=== PATIENT | female | born 1990 | race Hispanic/Latino ===

== ENCOUNTER 2018-03-28 19:11 | Emergency (ER) | payer SELFPAY ==
--- NOTE | 2018-03-28 20:09 | RAD REPORT ---
EXAM DESCRIPTION: RAD - Knee Right 3 View - 03/28/2018 7:53 pm CLINICAL HISTORY: PAIN COMPARISON: No comparisons FINDINGS: Evidence of previous ACL reconstruction noted. No acute fracture or dislocation evident. S mall suprapatellar joint effusion.
[2018-03-28] MEDS ORDERED: IBUPROFEN 400 MG TAB ONE (20:39)
--- NOTE | 2018-03-28 20:40 | EDPHYS ---
Physician Documentation [facility] Name: Gissell Dela Cruz Age: 28 yrs Sex: Female : 1990 Arrival Date: 03/28/2018 Time: 19:12 Bed 6 Private MD: ED Physician Jeremy Lemos HPI: 03/28 19:35 This 28 yrs old Female presents to ER via Other with complaints of Leg Injury. cp 19:35 The patient presents with an injury, pain, that is acute. The complaints affect the cp right knee. 19:35 Context: resulted from a mis-step, while walking down stairs. cp 03/29 19:35 Onset: The symptoms/episode began/occurred today. Associated signs and symptoms: cp Pertinent positives: swelling, Pertinent negatives calf tenderness, warmth. NYLON MENDER: 03/28 19:18 LMP 03/23/2018 aj1 Historical: - Allergies: 19:18 No Known Allergies; aj1 - Home Meds: 19:18 lisinopril-hydrochlorothiazide 20-25 mg oral tab 2 tabs once daily [Active]; aj1 - PMHx: 19:18 Hypertension; aj1 - Immunization history:: Flu vaccine is not up to date. - Social history:: Smoking status: Patient/guardian denies using tobacco. - Ebola Screening: : Patient denies travel to an Ebola-affected area in the 21 days before illness onset. ROS: 19:40 Constitutional: Negative for body aches, chills, fever, poor PO intake. cp 19:40 Respiratory: Negative for cough, shortness of breath, wheezing. cp 19:40 Abdomen/GI: Negative for abdominal pain, nausea, vomiting, and diarrhea, black/tarry stool, rectal bleeding. 19:40 Back: Negative for pain at rest, pain with movement, radiated pain. 19:40 : Negative for urinary symptoms. 19:40 MS/extremity: Positive for injury or acute deformity, decreased range of motion, pain, swelling, tenderness, of the right knee, Negative for paresthesias, warmth. 19:40 All other systems are negative. Exam: 19:45 Constitutional: The patient appears in no acute distress, alert, awake, non-toxic, well cp developed, well nourished, uncomfortable. 19:45 Head/Face: Normocephalic, atraumatic. cp 19:45 Chest/axilla: Inspection: normal. 19:45 Cardiovascular: Rate: normal, Rhythm: regular. 19:45 Respiratory: the patient does not display signs of respiratory distress, Respirations: normal, no use of accessory muscles, no retractions. 19:45 Abdomen/GI: Exam negative for discomfort, distension, guarding, Inspection: abdomen appears normal. 19:45 Back: pain, is absent, ROM is normal. 19:45 Musculoskeletal/extremity: Joints: All joints are normal except the right knee displays limited range of motion, painful range of motion, swelling, tenderness. 19:45 Skin: cellulitis, is not appreciated, injury, is not appreciated, no rash present. Vital Signs: 19:18 Pulse 79; Resp 18; Temp 98.4(TE); Pulse Ox 100% on R/A; Height 5 ft. 3 in. (160.02 cm) aj1 (R); Pain 7/10; 19:18 BP 152 / 117; aj1 20:45 BP 123 / 68; Pulse 70; Resp 18; Temp 98.4; Pulse Ox 99% on R/A; tl2 Procedures: 20:45 Splinting: Splint applied to right knee using knee immobilizer, applied by nurse. cp Examined by me, post splint application: neurovascular intact, Patient tolerated well. MDM: 19:24 Patient medically screened. cp 20:00 Differential diagnosis: dislocation, closed fracture, contusion, effusion, ligament cp injury. 20:38 Data reviewed: vital signs, nurses notes, radiologic studies, plain films. cp 20:38 Test interpretation: by ED physician or midlevel provider: plain radiologic studies. cp Counseling: I had a detailed discussion with the patient and/or guardian regarding: the historical points, exam findings, and any diagnostic results supporting the discharge/admit diagnosis, radiology results, the need for outpatient follow up, for definitive care, a orthopedic surgeon, to return to the emergency department if symptoms worsen or persist or if there are any questions or concerns that arise at home. Response to treatment: the patient's symptoms have mildly improved after treatment, and as a result, I will discharge patient. 03/28 20:13 Order name: Urine Dipstick--Ancillary (enter results) cc 03/28 20:14 Order name: Urine --Ancillary (enter results) cc 03/28 19:27 Order name: XRAY Knee RIGHT 3 view; Complete Time: 20:30 cp 03/28 20:30 Interpretation: Report reviewed. cp 03/28 19:27 Order name: Urine Test (obtain specimen); Complete Time: 20:04 cp 03/28 19:27 Order name: Urine Dipstick-Ancillary (obtain specimen); Complete Time: 20:04 cp 03/28 20:38 Order name: Knee Immobilizer; Complete Time: 20:50 cp Administered Medications: 20:34 Drug: Ibuprofen 800 mg Route: PO; ea 20:50 Follow up: Response: No adverse reaction; Pain is decreased tl2 Disposition: 21:00 Chart complete. cp 22:04 Co-signature as Attending Physician, Jeremy Lemos MD. pkl Disposition: 03/28/18 20:39 Discharged to Home. Impression: Pain in right knee. - Condition is Stable. - Discharge Instructions: Knee Immobilizer, Knee Pain. - Prescriptions for Anaprox DS 550 mg Oral Tablet - take 1 tablet by ORAL route every 12 hours As needed; 20 tablet. Tramadol 50 mg Oral Tablet - take 1 tablet by ORAL route every 8 hours as needed; 12 tablet. - Medication Reconciliation Form, Thank You Letter, Antibiotic Education, Prescription Opioid Use form. - Follow up: Олег Nixon MD; When: 2 - 3 days; Reason: Recheck today's complaints. - Problem is new. - Symptoms have improved. Signatures: Dispatcher [employer] EDGala Parker RN RN aj1 Jeremy Lemos MD MD pkl Emilio Arnett PA PA cp Sara Atkinson RN RN tl2 Bessie Grossman RN RN ea Corrections: (The following items were deleted from the chart) 20:53 20:39 03/28/2018 20:39 Discharged to Home. Impression: Pain in right knee. Condition is tl2 Stable. Forms are Medication Reconciliation Form, Thank You Letter, Antibiotic Education, Prescription Opioid Use. Follow up: Dr. Олег Nixon; When: 2 - 3 days; Reason: Recheck today's complaints. Problem is new. Symptoms have improved. cp
--- NOTE | 2018-03-28 20:40 | ER ---
Nurse's Notes [facility] Name: Gissell Dela Cruz Age: 28 yrs Sex: Female : 1990 Arrival Date: 03/28/2018 Time: 19:12 Bed 6 Private MD: Diagnosis: Pain in right knee Presentation: 03/28 19:14 Presenting complaint: Patient states: "I fell today and my knee popped out of place. I aj1 had a ACL reconstruction and meniscus repair one year ago." Reports pain and swelling to the right knee, unable to bear weight on right leg. Transition of care: patient was not received from another setting of care. Onset of symptoms was March 28, 2018 at 16:00. Risk Assessment: Do you want to hurt yourself or someone else? Patient reports no desire to harm self or others. Initial Sepsis Screen: Does the patient meet any 2 criteria? No. Patient's initial sepsis screen is negative. Does the patient have a suspected source of infection? No. Patient's initial sepsis screen is negative. Care prior to arrival: None. 19:14 Method Of Arrival: Other [facility] 19:14 Acuity: CAMILO 3 aj1 Triage Assessment: 19:18 General: Appears in no apparent distress. uncomfortable, Behavior is calm, cooperative, aj1 appropriate for age. Pain: Complains of pain in right knee Pain currently is 7 out of 10 on a pain scale. Neuro: Level of Consciousness is awake, alert, obeys commands. Cardiovascular: Patient's skin is warm and dry. Respiratory: Airway is patent Respiratory effort is even, unlabored, Respiratory pattern is regular, symmetrical. Musculoskeletal: Range of motion: limited in right knee. SLOT HOST: 19:18 LMP 03/23/2018 aj1 Historical: - Allergies: 19:18 No Known Allergies; aj1 - Home Meds: 19:18 lisinopril-hydrochlorothiazide 20-25 mg oral tab 2 tabs once daily [Active]; aj1 - PMHx: 19:18 Hypertension; aj1 - Immunization history:: Flu vaccine is not up to date. - Social history:: Smoking status: Patient/guardian denies using tobacco. - Ebola Screening: : Patient denies travel to an Ebola-affected area in the 21 days before illness onset. Screenin:45 Abuse screen: Denies threats or abuse. Nutritional screening: No deficits noted. tl2 Tuberculosis screening: No symptoms or risk factors identified. Fall Risk Ambulatory Aid- Crutches/Cane/Walker (15 pts). Gait- Impaired (20 pts.). Assessment: 19:45 General: Appears in no apparent distress. uncomfortable, Behavior is calm, cooperative, tl2 appropriate for age. Pain: Complains of pain in right knee Pain does not radiate. Neuro: Level of Consciousness is awake, alert, obeys commands, Oriented to person, place, time, situation. Cardiovascular: Denies chest pain. Respiratory: Airway is patent Respiratory effort is even, unlabored, Respiratory pattern is regular, symmetrical. Derm: Skin is pink, warm \\T\\ dry. Musculoskeletal: Circulation, motion, and sensation intact. Range of motion: limited in right knee Swelling present in right knee. Vital Signs: 19:18 Pulse 79; Resp 18; Temp 98.4(TE); Pulse Ox 100% on R/A; Height 5 ft. 3 in. (160.02 cm) aj1 (R); Pain 7/10; 19:18 BP 152 / 117; aj1 20:45 BP 123 / 68; Pulse 70; Resp 18; Temp 98.4; Pulse Ox 99% on R/A; tl2 ED Course: 19:12 Patient arrived in ED. ds1 19:17 Triage completed. aj1 19:21 Emilio Arnett PA is PHCP. cp 19:21 Jeremy Lemos MD is Attending Physician. cp 19:33 Elevated right leg. jb5 19:44 Sara Atkinson, RN is Primary Nurse. tl2 19:45 Patient has correct armband on for positive identification. Bed in low position. Call tl2 light in reach. Side rails up X 1. 19:46 Arm band placed on right wrist. tl2 19:53 XRAY Knee RIGHT 3 view In Process Unspecified. EDMS 20:39 Олег Nixon MD is Referral Physician. cp 20:51 No provider procedures requiring assistance completed. Patient did not have IV access tl2 during this emergency room visit. Administered Medications: 20:34 Drug: Ibuprofen 800 mg Route: PO; ea 20:50 Follow up: Response: No adverse reaction; Pain is decreased tl2 Outcome: 20:39 Discharge ordered by . cp 20:51 Discharged to home with crutches, with family. tl2 20:51 Condition: improved 20:51 Discharge instructions given to patient, Instructed on discharge instructions, follow up and referral plans. medication usage, Demonstrated understanding of instructions, follow-up care, medications, Prescriptions given X 2. 20:53 Patient left the ED. tl2 Signatures: Dispatcher [employer] EDMS Gala Momin, RN RN aj1 Shruthi Lantigua ds1 Emilio Arnett PA PA cp Knox, Taylor RN RN tl2 Stacia Trevino jb5 Bessie Grossman RN RN ea
[2018-03-28 21:14] LABS: Urine Blood TRACE (NEG); Urine Glucose NEGATIVE (NEG); Urine Protein NEGATIVE (NEG); Urine Specific Gravity >1.030 (1.005-1.030); Urine pH 5.5 (5.0-7.0)
[2018-03-28 21:14] LABS: Urine Specific Gravity >1.030 (1.005-1.030)
== END 2018-03-28 20:53 | disposition home or self-care (01) ==
LOC: ER 19:11
DX: M25.561 Pain in right knee (principal); I10 Essential (primary) hypertension
CPT/HCPCS: 81003; 81025; 99283

== ENCOUNTER 2019-07-29 08:27 | Emergency (ER) | payer SELFPAY ==
--- OUTSIDE RECORDS SUMMARY | 2019-07-29 08:30 | XMS REPORT | Continuity of Care Document ---
:1990 Author Organization [facility] Address [address] [place] [address] Phone Unavailable Care Team Providers Name Role Phone PHYSICIAN, NO Primary Care Physician Unavailable Insurance Providers Guarantor Gissell Eldridge Address [address] [place] [address] Email NONE Payer Self Pay Insurance Subscriber's Name Gissell Eldridge Relationship Self / Same As Patient Group Number NA Group Name NA Advance Directives Directive Response Recorded Date/Time Advance Directive on File No 08/06/18 8:20am Patient/Family Given Education Material R/T Y - 08/06/18...[place] 08/06/18 9: 59am Directives? Chief Complaint and Reason for Visit Chief Complaint Headache Reason for Visit Headache [id number] Hypertension Problems Active ProblemsNo active problem information available. Past Problems Medical Problem Onset Date Status Abnormal CT of brain Unknown Acute Headache Unknown Acute Hypertension Unknown Acute Medications Current Home Medications Medication Dose Units Route Directions Days Qty Instructions Start Date Lisinopril & 1 Tab ORAL Daily 30 Days 30 Tablet Hydrochlorothiazi 20/25MG * (Zestoretic 20/25 Mg *) 1 Tab Tab Social History Smoking Status Start Date Stop Date Never smoker Hospital Discharge Instructions No hospital discharge instruction information available. Plan of Care Discharge Date 08/06/18 11:18am Instructions/Education Provided General Headache Without Cause Hypertension Forms Provided Portal Welcome Letter Prescriptions See Medication Section Referrals NO PHYSICIAN Additional Instructions/Education CALL MD OR CLINIC TODAY FOR FOLLOW UP ON HIGH BLOOD PRESSURE AND ABNORMAL CAT SCAN LISINOPRIL/HCT20/12.5 EVERY AM FOR BLOOD PRESSURE MOTRIN FOR HEADACHE Functional Status No functional status information available. Allergies, Adverse Reactions, Alerts No known allergies. Immunizations No immunization information available. Vital Signs Acute Vital Signs Vital Response Date/Time Blood Pressure 131/80 mm Hg 08/06/2018 11:17am Pulse Pulse Rate (adult) 55 beats per minute (60 - 100) 08/06/2018 11:17am Respiratory Rate 15 breaths per minute (10 - 24) 08/06/2018 11:17am Temperature Source Oral 08/06/2018 11:17am Height 5 ft 3 in 08/06/2018 8:20am Weight 190 lb 08/06/2018 8:20am Body Mass Index 33.7 kg/m^2 08/06/2018 8:20am Results Laboratory Results Test Name Result Units Flags Reference Collection Result Comments Date/Time Date/Time White Blood Count 5.5 K/ul 4.0-11.5 08/06/2018 08/06/2018 10:04am 10:15am Red Blood Count 4.35 M/ul 3.80-5.20 08/06/2018 08/06/2018 10:04am 10:15am Hemoglobin 9.5 g/dl L 10.5-15.7 08/06/2018 08/06/2018 10:04am 10:15am Hematocrit 31.6 % L 34.0-50.0 08/06/2018 08/06/2018 10:04am 10:15am Mean Corpuscular 72.6 fl L 78-98 08/06/2018 08/06/2018 Volume 10:04am 10:15am Mean Corpuscular 21.8 pg L 26.2-33.4 08/06/2018 08/06/2018 Hemoglobin 10:04am 10:15am Mean Corpuscular 30.0 g/dl L 31.5-36.2 08/06/2018 08/06/2018 Hemoglobin Concent 10:04am 10:15am Red Cell 15.2 % 11.5-15.5 08/06/2018 08/06/2018 Distribution Width 10:04am 10:15am Platelet Count 345 K/ul H 137-338 08/06/2018 08/06/2018 10:04am 10:15am Mean Platelet 7.0 fl L 8.4-11.8 08/06/2018 08/06/2018 Volume 10:04am 10:15am Neutrophils (%) 67.9 % 44.4-80.1 08/06/2018 08/06/2018 (Auto) 10:04am 10:15am Lymphocytes (%) 21.3 % 10.0-50.0 08/06/2018 08/06/2018 (Auto) 10:04am 10:15am Monocytes (%) 6.9 % 3.6-12.04 08/06/2018 08/06/2018 (Auto) 10:04am 10:15am Eosinophils (%) 2.2 % 0.0-5.41 08/06/2018 08/06/2018 (Auto) 10:04am 10:15am Basophils (%) 1.7 % H 0.0-0.79 08/06/2018 08/06/2018 (Auto) 10:04am 10:15am Random Glucose 109 mg/dL H 74-106 08/06/2018 08/06/2018 10:04am 10:30am Blood Urea Nitrogen 9 mg/dL 6-20 08/06/2018 08/06/2018 10:04am 10:30am Serum Osmolality 281 280-300 08/06/2018 08/06/2018 10:04am 10:30am Creatinine 0.5 mg/dL 0.50-0.90 08/06/2018 08/06/2018 10:04am 10:30am Glomerular > 60.00 08/06/2018 08/06/2018 GFR RESULTS ARE REPORTED IN mL/min/1.73m2. Filtration Rate 10:04am 10:30am Calc Normal GFR: >60mL/min Moderately decreased GFR: 30-59 mL/min Severely decreased GFR: 15-29 mL/min Kidney Failure (or Dialysis): <15 mL/min The calculated eGFR is not valid for patients younger than 18 years or older than 75 years. BUN/Creatinine 18.0 12-20 08/06/2018 08/06/2018 Ratio 10:04am 10:30am Sodium Level 141 mmol/L 135-145 08/06/2018 08/06/2018 10:04am 10:30am Potassium Level 4.0 mmol/L 3.5-5.2 08/06/2018 08/06/2018 10:04am 10:30am Chloride Level 107 mmol/L 98-108 08/06/2018 08/06/2018 10:04am 10:30am Carbon Dioxide 24 mmol/L 21-32 08/06/2018 08/06/2018 Level 10:04am 10:30am Anion Gap 14.0 mEq/L 12-20 08/06/2018 08/06/2018 10:04am 10:30am Calcium Level 9.0 mg/dL 8.6-10.0 08/06/2018 08/06/2018 10:04am 10:30am Total Protein 6.9 g/dL 6.6-8.7 08/06/2018 08/06/2018 10:04am 10:30am Albumin 4.1 g/dL 3.5-5.2 08/06/2018 08/06/2018 10:04am 10:30am Globulin 2.8 gm/dL 08/06/2018 08/06/2018 10:04am 10:30am Albumin/Globulin 1.5 >1.0 08/06/2018 08/06/2018 Ratio 10:04am 10:30am Total Bilirubin 0.5 mg/dL 0.0-1.2 08/06/2018 08/06/2018 10:04am 10:30am Aspartate Amino 14 U/L L 15-32 08/06/2018 08/06/2018 Transf (AST/SGOT) 10:04am 10:30am Alanine 10 U/L 0-33 08/06/2018 08/06/2018 Aminotransferase 10:04am 10:30am (ALT/SGPT) Total Alkaline 70 U/L 35-105 08/06/2018 08/06/2018 Phosphatase 10:04am 10:30am Procedures Procedure Status Date Provider(s) Computed tomography of head without contrast Completed 08/06/18 ARCENIO SCOTT MD Encounters Encounter Location Arrival/Admit Date Discharge/Depart Date Attending Provider Departed [place] 08/06/18 8:10am 08/06/18 11:18am ARCENIO SCOTT [facility] Recent Diagnosis
--- OUTSIDE RECORDS SUMMARY | 2019-07-29 08:30 | XMS REPORT | Continuity of Care Document ---
:1990 Author Organization [facility] Address [address] [place] [address] Phone Unavailable Care Team Providers Name Role Phone PHYSICIAN, NO Primary Care Physician Unavailable Insurance Providers Guarantor Gissell Eldridge Address [address] [address] Email NONE Payer Self Pay Insurance Subscriber's Name Gissell Eldridge Relationship Self / Same As Patient Group Number NA Group Name NA Advance Directives Directive Response Recorded Date/Time Advance Directive on File No 11/20/18 8:15pm Patient/Family Given Education Material R/T Y - 11/20/18...MK 11/20/18 9: 12pm Directives? Chief Complaint and Reason for Visit Chief Complaint Extremity Pain/Injury Reason for Visit Carpal tunnel syndrome Cyst of hand Problems Active ProblemsNo active problem information available. Past Problems Medical Problem Onset Date Status Abnormal CT of brain Unknown Acute Carpal tunnel syndrome Unknown Acute Cyst of hand Unknown Acute Headache Unknown Acute Hypertension Unknown Acute Medications Current Home Medications Medication Dose Units Route Directions Days Qty Instructions Start Date Lisinopril & 1 Tab ORAL Daily 30 Days 30 Hydrochlorothiazi Tablet 20/25MG * (Zestoretic 20/25 Mg *) 1 Tab Tab Naproxen (Naprosyn 500 Mg ORAL Every 12 10 Days 20 500 Mg*) 500 Mg Tab Hours As Tablet 9 Needed as needed for Pain Social History Smoking Status Start Date Stop Date Current some day smoker Hospital Discharge Instructions No hospital discharge instruction information available. Plan of Care Discharge Date 11/20/18 9:12pm Instructions/Education Provided Carpal Tunnel Syndrome, [id number] Prescriptions See Medication Section Referrals NO PHYSICIAN Additional Instructions/Education naproxen 500mg po every 12 hours as needed for pain #20 buy carpel tunnel wrist splint to wear at night follow up with orthopedic next week for evaluation of cyst on hand return for new or worsening of symptoms Functional Status No functional status information available. Allergies, Adverse Reactions, Alerts No known allergies. Immunizations No immunization information available. Vital Signs Acute Vital Signs Vital Response Date/Time Blood Pressure 165/109 mm Hg 11/20/2018 9:18pm Pulse Pulse Rate (adult) 80 beats per minute (60 - 100) 11/20/2018 9:18pm Respiratory Rate 16 breaths per minute (10 - 24) 11/20/2018 9:18pm Temperature Source Oral 11/20/2018 9:18pm Height 5 ft 3 in 11/20/2018 8:15pm Weight 185 lb 11/20/2018 8:15pm Body Mass Index 32.8 kg/m^2 11/20/2018 8:15pm Results No relevant diagnostic test, laboratory data and/or discharge summary information available. Procedures No procedure information available. Encounters Encounter Location Arrival/Admit Date Discharge/Depart Date Attending Provider Departed [place] 11/20/18 8:11pm 11/20/18 9:12pm ARIELA[facility] Recent Diagnosis
--- NOTE | 2019-07-29 08:50 | EDPHYS ---
Physician Documentation [facility] Name: Gissell Dela Cruz Age: 29 yrs Sex: Female : 1990 Arrival Date: 07/29/2019 Time: 08:31 Bed 12 Private MD: ED Physician Hayden Luevano HPI: 07/29 08:47 This 29 yrs old Female presents to ER via Ambulatory with complaints of Hives. rn 08:47 Reports rash to torso and extremities, began yesterday, + extreme itching, has never rn happened before, no known allergies or new exposure. . Onset: The symptoms/episode began/occurred yesterday. Severity of symptoms: At their worst the symptoms were mild in the emergency department the symptoms are unchanged. The patient has not experienced similar symptoms in the past. The patient has not recently seen a physician. Historical: - Allergies: 08:43 No Known Allergies; aa5 - PMHx: 08:43 Hypertension; aa5 - PSHx: 08:43 R ACL repair; Tubal ligation; aa5 - Immunization history:: Adult Immunizations unknown. - Coronavirus screen:: The patient has NOT traveled to [place], [place], or [place] in the past 14 days. The patient has NOT had contact with known/suspected case of Coronavirus?. - Social history:: Smoking status: Patient denies any tobacco usage or history of. - Family history:: not pertinent. - Ebola Screening: : No symptoms or risks identified at this time. - Hospitalizations: : No recent hospitalization is reported. ROS: 08:47 Constitutional: Negative for fever, chills, and weight loss, Eyes: Negative for injury, rn pain, redness, and discharge, Neck: Negative for injury, pain, and swelling, Cardiovascular: Negative for chest pain, palpitations, and edema, Respiratory: Negative for shortness of breath, cough, wheezing, and pleuritic chest pain, Abdomen/GI: Negative for abdominal pain, nausea, vomiting, diarrhea, and constipation, MS/Extremity: Negative for injury and deformity, Skin: + rash to torso and extremities Neuro: Negative for headache, weakness, numbness, tingling, and seizure. Exam: 08:47 Constitutional: This is a well developed, well nourished patient who is awake, alert, rn and in no acute distress. Head/Face: Normocephalic, atraumatic. ENT: No oral lesions Respiratory: No increased work of breathing, no retractions or nasal flaring. Comfortable and speaking full sentences Skin: + back and extremities with mild urticaria, no bullae, no sloughing, no focal fluctuance. Vital Signs: 08:43 BP 144 / 99; Pulse 60; Resp 16 S; Temp 98.1(TE); Pulse Ox 100% on R/A; Weight 83.01 kg aa5 (R); Height 5 ft. 3 in. (160.02 cm) (R); Pain 0/10; 08:43 Body Mass Index 32.42 (83.01 kg, 160.02 cm) aa5 MDM: 08:41 Patient medically screened. rn 08:47 Differential Diagnosis urticaria. Data reviewed: vital signs, nurses notes, and as a rn result, I will discharge patient. Counseling: I had a detailed discussion with the patient and/or guardian regarding: the historical points, exam findings, and any diagnostic results supporting the discharge/admit diagnosis, the need for outpatient follow up, to return to the emergency department if symptoms worsen or persist or if there are any questions or concerns that arise at home. Special discussion: I discussed with the patient/guardian in detail that at this point there is no indication for admission to the hospital. It is understood, however, that if the symptoms persist or worsen the patient needs to return immediately for re-evaluation. Administered Medications: 09:04 Drug: predniSONE 60 mg Route: PO; aa5 09:10 Follow up: Response: No adverse reaction aa5 Disposition: 07/29/19 08:50 Discharged to Home. Impression: Urticaria, unspecified. - Condition is Stable. - Discharge Instructions: Hives. - Prescriptions for Hydroxyzine HCl 50 mg Oral Tablet - take 1 tablet by ORAL route every 8 hours As needed; 20 tablet. Prednisone 20 mg Oral Tablet - take 3 tablet by ORAL route once daily for 5 days; 15 tablet. - Medication Reconciliation Form, Thank You Letter, Antibiotic Education, Prescription Opioid Use, Work release form form. - Follow up: Private Physician; When: As needed; Reason: Recheck today's complaints, Re-evaluation by your physician. - Problem is new. - Symptoms have improved. Signatures: Luevano, Hayden, MD MD rn Uriarte, Isabel, RN RN aa5 Corrections: (The following items were deleted from the chart) 09:17 08:50 07/29/2019 08:50 Discharged to Home. Impression: Urticaria, unspecified. rn Condition is Stable. Forms are Medication Reconciliation Form, Thank You Letter, Antibiotic Education, Prescription Opioid Use. Follow up: Private Physician; When: As needed; Reason: Recheck today's complaints, Re-evaluation by your physician. Problem is new. Symptoms have improved. rn
--- NOTE | 2019-07-29 08:50 | ER ---
Nurse's Notes [facility] Name: Gissell Dela Cruz Age: 29 yrs Sex: Female : 1990 Arrival Date: 07/29/2019 Time: 08:31 Bed 12 Private MD: Diagnosis: Urticaria, unspecified Presentation: 07/29 08:38 Presenting complaint: Patient states: "I started with an itchy rash on my chest aa5 yesterday and this morning I took Benadryl and it went away for a little bit but now it's on my back". 08:38 Transition of care: patient was not received from another setting of care. Onset: The aa5 symptoms/episode began/occurred 1 day(s) ago. Anaphylaxis evaluation, the patient reports or I have noted the following symptoms which indicate a significant risk of anaphylaxis:. Onset of symptoms was July 2019. Risk Assessment: Do you want to hurt yourself or someone else? Patient reports no desire to harm self or others. Initial Sepsis Screen: Does the patient meet any 2 criteria? No. Patient's initial sepsis screen is negative. Does the patient have a suspected source of infection? No. Patient's initial sepsis screen is negative. Care prior to arrival: None. 08:38 Method Of Arrival: Ambulatory aa5 08:38 Acuity: CAMILO 5 aa5 Historical: - Allergies: 08:43 No Known Allergies; aa5 - PMHx: 08:43 Hypertension; aa5 - PSHx: 08:43 R ACL repair; Tubal ligation; aa5 - Immunization history:: Adult Immunizations unknown. - Coronavirus screen:: The patient has NOT traveled to [place], [place], or [place] in the past 14 days. The patient has NOT had contact with known/suspected case of Coronavirus?. - Social history:: Smoking status: Patient denies any tobacco usage or history of. - Family history:: not pertinent. - Ebola Screening: : No symptoms or risks identified at this time. - Hospitalizations: : No recent hospitalization is reported. Screenin:40 Abuse screen: Denies threats or abuse. Nutritional screening: No deficits noted. aa5 Tuberculosis screening: No symptoms or risk factors identified. Fall Risk None identified. Assessment: 08:40 General: Appears comfortable, Behavior is calm, cooperative. Pain: Denies pain. Neuro: aa5 Level of Consciousness is awake, alert, obeys commands, Oriented to person, place, time, situation. Cardiovascular: Heart tones S1 S2 present Rhythm is regular. Respiratory: Airway is patent Respiratory effort is even, unlabored, Respiratory pattern is regular, symmetrical, Breath sounds are clear bilaterally. GI: Abdomen is round non-distended, Bowel sounds present X 4 quads. Abd is soft and non tender X 4 quads. : No signs and/or symptoms were reported regarding the genitourinary system. EENT: No signs and/or symptoms were reported regarding the EENT system. Derm: Skin is pink, warm \\T\\ dry. Rash noted that is red, raised, on back. Musculoskeletal: Range of motion: intact in all extremities. 09:10 Reassessment: Patient is alert, oriented x 3, equal unlabored respirations, skin aa5 warm/dry/pink. Vital Signs: 08:43 BP 144 / 99; Pulse 60; Resp 16 S; Temp 98.1(TE); Pulse Ox 100% on R/A; Weight 83.01 kg aa5 (R); Height 5 ft. 3 in. (160.02 cm) (R); Pain 0/10; 08:43 Body Mass Index 32.42 (83.01 kg, 160.02 cm) aa5 ED Course: 08:31 Patient arrived in ED. rg4 08:40 Arm band placed on Patient placed in an exam room. aa5 08:40 Patient has correct armband on for positive identification. aa5 08:41 Hayden Luevano MD is Attending Physician. rn 08:43 Triage completed. aa5 08:44 Isabel Uriarte RN is Primary Nurse. aa5 09:10 No provider procedures requiring assistance completed. Patient did not have IV access aa5 during this emergency room visit. Administered Medications: 09:04 Drug: predniSONE 60 mg Route: PO; aa5 09:10 Follow up: Response: No adverse reaction aa5 Outcome: 08:50 Discharge ordered by . rn 09:10 Discharged to home ambulatory. aa5 09:10 Condition: stable 09:10 Discharge instructions given to patient, Instructed on discharge instructions, follow up and referral plans. medication usage, Demonstrated understanding of instructions, follow-up care, medications, Prescriptions given X 2. 09:12 Patient left the ED. aa5 Signatures: Hayden Luevano MD MD rn Calderon, TRAE Hall RN aa5 Xuan Chang rg4 Corrections: (The following items were deleted from the chart) 09:21 09:17 Patient left the ED. trae [email or web address]
[2019-07-29] MEDS ORDERED: predniSONE 20 MG TAB ONE (09:07)
[2019-07-29 11:43] VITALS: BP 144/99; TEMP 98.1; O2SAT 100
== END 2019-07-29 09:17 | disposition home or self-care (01) ==
LOC: ER 08:27
DX: L50.9 Urticaria, unspecified (principal)
CPT/HCPCS: 99283; J7512

== ENCOUNTER 2020-08-22 02:10 | Emergency (ER) | payer SELFPAY ==
[2020-08-22] MEDS ORDERED: ACETAMINOPHEN 500 MG TAB ONE (03:01)
--- NOTE | 2020-08-22 03:19 | ER ---
Nurse's Notes [facility] Name: Gissell Dela Cruz Age: 30 yrs Sex: Female : 1990 Arrival Date: 08/22/2020 Time: 02:12 Bed 7 Private MD: Diagnosis: Contusion-Right Foot Presentation: 08/22 02:18 Chief complaint: Patient states: C/O right foot pain, accidentally hit door 2 days ago. Coronavirus screen: Client denies travel out of the [place] in the last 14 days. At this time, the client does not indicate any symptoms associated with coronavirus-19. Ebola Screen: Patient negative for fever greater than or equal to 101.5 degrees Fahrenheit, and additional compatible Ebola Virus Disease symptoms Patient denies exposure to infectious person. Initial Sepsis Screen: Does the patient meet any 2 criteria? No. Patient's initial sepsis screen is negative. Does the patient have a suspected source of infection? No. Patient's initial sepsis screen is negative. Risk Assessment: Do you want to hurt yourself or someone else? Patient reports no desire to harm self or others. Onset of symptoms was August 22, 2020. 02:18 Method Of Arrival: Ambulatory 02:18 Acuity: CAMILO 4 Triage Assessment: 02:21 Injury Description: Right foot pain. [employer]: 02:22 LMP 07/2020 Historical: - Allergies: 02:21 No Known Allergies; - PMHx: 02:21 Hypertension; - PSHx: 02:21 Tubal ligation; - Immunization history:: Adult Immunizations up to date. - Social history:: Smoking status: Patient/guardian denies using. Screenin:21 Abuse screen: Denies threats or abuse. Denies injuries from another. Nutritional screening: No deficits noted. Tuberculosis screening: No symptoms or risk factors identified. Fall Risk None identified. Assessment: 02:21 General: Appears in no apparent distress. Behavior is calm, cooperative, appropriate for age. Pain: Complains of pain in right foot Pain currently is 6 out of 10 on a pain scale. Quality of pain is described as aching, Pain began 2-3 days ago. Neuro: Level of Consciousness is awake, alert, obeys commands, Oriented to person, place, time, situation, Appropriate for age. Cardiovascular: Capillary refill < 3 seconds. Respiratory: Airway is patent Respiratory effort is even, unlabored, Respiratory pattern is regular, symmetrical. GI: Abdomen is flat, non-distended. : No signs and/or symptoms were reported regarding the genitourinary system. EENT: No signs and/or symptoms were reported regarding the EENT system. Derm: Skin is intact, is healthy with good turgor, Skin is pink, warm \T\ dry. normal. Musculoskeletal: Circulation, motion, and sensation intact. 03:30 Reassessment: Patient appears in no apparent distress at this time. No changes from previously documented assessment. Patient and/or family updated on plan of care and expected duration. Pain level reassessed. Patient is alert/active/playful, equal unlabored respirations, skin warm/dry/pink. Vital Signs: 02:18 BP 156 / 107; Pulse 90; Resp 18; Temp 97.9; Pulse Ox 100% ; Weight 74.84 kg; Height 5 ft. 3 in. (160.02 cm); Pain 6/10; 03:30 BP 141 / 97; Pulse 69; Resp 18; Pulse Ox 100% on R/A; wh 02:18 Body Mass Index 29.23 (74.84 kg, 160.02 cm) ED Course: 02:12 Patient arrived in ED. cl3 02:13 Jose Luis Prakash, RN is Primary Nurse. 02:16 García Lawrence MD is Attending Physician. 7 02:20 Triage completed. 02:22 Patient has correct armband on for positive identification. Bed in low position. Call light in reach. Side rails up X 1. Pulse ox on. NIBP on. 02:23 Arm band placed on right wrist. 03:09 Foot Right 3 View XRAY In Process Unspecified. EDMS 03:13 No provider procedures requiring assistance completed. Patient did not have IV access mg2 during this emergency room visit. 03:18 Roge Vivar DPM is Referral Physician. 7 03:36 Crutch training done. Tejinder wrap to right foot Ortho shoe applied to right foot. mg2 Administered Medications: 02:41 Drug: Tylenol 1000 mg Route: PO; mg2 03:23 Follow up: Response: No adverse reaction mg2 Outcome: 03:18 Discharge ordered by . mh7 03:36 Discharged to home via wheelchair, with crutches. mg2 03:36 Condition: stable 03:36 Discharge instructions given to patient, family, Instructed on discharge instructions, follow up and referral plans. medication usage, Demonstrated understanding of instructions, follow-up care, medications, Prescriptions given X 1. 03:47 Patient left the ED. Signatures: Dispatcher [employer] EDJose Luis Gonzalez RN RN Janusz Jesus RN RN [facility] Edy Gonsales cl3 García Lawrence MD MD mh7
--- NOTE | 2020-08-22 03:19 | EDPHYS ---
Physician Documentation [facility] Name: Gissell Dela Cruz Age: 30 yrs Sex: Female : 1990 Arrival Date: 08/22/2020 Time: 02:12 Bed 7 Private MD: ALEJANDRA Physician García Lawrence HPI: 08/22 02:33 This 30 yrs old Female presents to ER via Ambulatory with complaints of Foot mh7 Injury, Foot Pain. 02:33 The patient presents with an injury, pain, that is acute, tenderness. The complaints mh7 affect the right foot. Context: The problem was sustained at home, resulted from stubbing toe on door. Mechanism of Injury: direct blow to lateral foot the patient can fully bear weight, the patient is able to ambulate, with mild difficulty. Onset: The symptoms/episode began/occurred 2 day(s) ago. Modifying factors: The symptoms are alleviated by nothing, the symptoms are aggravated by weight bearing. Associated signs and symptoms: Pertinent negatives: calf tenderness, fever, nausea, numbness, rash, swelling, tingling, vomiting, warmth, weakness. 02:35 Severity of symptoms: At their worst the symptoms were moderate, yesterday, in the [facility] emergency department the symptoms are unchanged. 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 - Social history:: Smoking status: Patient/guardian denies using. ROS: 02:35 Constitutional: Negative for fever, chills, and weight loss, Eyes: Negative for injury, mh7 pain, redness, and discharge, ENT: Negative for injury, pain, and discharge, Neck: Negative for injury, pain, and swelling, Cardiovascular: Negative for chest pain, palpitations, and edema, Respiratory: Negative for shortness of breath, cough, wheezing, and pleuritic chest pain, Abdomen/GI: Negative for abdominal pain, nausea, vomiting, diarrhea, and constipation, Back: Negative for injury and pain, : Negative for injury, bleeding, discharge, and swelling, Skin: Negative for injury, rash, and discoloration, Neuro: Negative for headache, weakness, numbness, tingling, and seizure, Psych: Negative for depression, anxiety, suicide ideation, homicidal ideation, and hallucinations, Allergy/Immunology: Negative for hives, rash, and allergies, Endocrine: Negative for neck swelling, polydipsia, polyuria, polyphagia, and marked weight changes, Hematologic/Lymphatic: Negative for swollen nodes, abnormal bleeding, and unusual bruising. Exam: 02:35 Constitutional: This is a well developed, well nourished patient who is awake, alert, mh7 and in no acute distress. Head/Face: Normocephalic, atraumatic. Neck: Trachea midline, no thyromegaly or masses palpated, and no cervical lymphadenopathy. Supple, full range of motion without nuchal rigidity, or vertebral point tenderness. No Meningismus. Chest/axilla: Normal chest wall appearance and motion. Nontender with no deformity. No lesions are appreciated. Cardiovascular: Regular rate and rhythm with a normal S1 and S2. No gallops, murmurs, or rubs. Normal PMI, no JVD. No pulse deficits. Respiratory: Lungs have equal breath sounds bilaterally, clear to auscultation and percussion. No rales, rhonchi or wheezes noted. No increased work of breathing, no retractions or nasal flaring. Abdomen/GI: Soft, non-tender, with normal bowel sounds. No distension or tympany. No guarding or rebound. No evidence of tenderness throughout. Back: No spinal tenderness. No costovertebral tenderness. Full range of motion. Skin: Warm, dry with normal turgor. Normal color with no rashes, no lesions, and no evidence of cellulitis. 02:35 Neuro: Awake and alert, GCS 15, oriented to person, place, time, and situation. Cranial nerves II-XII grossly intact. Motor strength 5/5 in all extremities. Sensory grossly intact. Cerebellar exam normal. Normal gait. Psych: Awake, alert, with orientation to person, place and time. Behavior, mood, and affect are within normal limits. 02:35 Musculoskeletal/extremity: Extremities: noted in the lateral aspect of right foot: pain, tenderness, ROM: intact in all extremities, Circulation is intact in all extremities. Pulses: are normal with no appreciated deficits, Perfusion: the patient is normally perfused throughout, Perfusion: the extremity is normally perfused throughout, Calf tenderness, is absent, Edema, is not appreciated, Sensation intact. Compartment Syndrome exam of affected extremity: is normal. no numbness, no tingling, no sensation deficit, no palor, no weak pulses, Joints: All joints appear normal with full range of motion. Tendon exam: specific tendon testing normal through active and passive range of motion Vital Signs: 02:18 BP 156 / 107; Pulse 90; Resp 18; Temp 97.9; Pulse Ox 100% ; Weight 74.84 kg; Height 5 wh ft. 3 in. (160.02 cm); Pain 6/10; 03:30 BP 141 / 97; Pulse 69; Resp 18; Pulse Ox 100% on R/A; wh 02:18 Body Mass Index 29.23 (74.84 kg, 160.02 cm) wh MDM: 03:16 Differential diagnosis: fracture, sprain, arthritis, Contusion. Data reviewed: vital [facility] signs, nurses notes, radiologic studies, plain films. Data interpreted: Pulse oximetry: on room air is 100 %. Interpretation: normal. 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 Response to treatment: the patient's symptoms have markedly improved after treatment. 03:18 Patient medically screened. [facility] 08/22 02:32 Order name: Foot Right 3 View XRAY [facility] 08/22 03:17 Order name: Tejinder Wrap; Complete Time: 03:36 [facility] 08/22 03:17 Order name: Orthopedic shoe; Complete Time: 03:35 [facility] 08/22 03:17 Order name: Crutches; Complete Time: 03:35 [facility] Administered Medications: 02:41 Drug: Tylenol 1000 mg Route: PO; mg2 03:23 Follow up: Response: No adverse reaction mg2 Disposition: 08/22/20 03:18 Discharged to Home. Impression: Contusion-Right Foot. - Condition is Stable. - Discharge Instructions: Foot Contusion, [id number]. - Prescriptions for Ibuprofen 800 mg Oral Tablet - take 1 tablet by ORAL route every 8 hours As needed take with food; 15 tablet. - Work release form, Medication Reconciliation Form, Thank You Letter, Antibiotic Education, Prescription Opioid Use form. - Follow up: Private Physician; When: 1 - 2 days; Reason: Worsening of condition, Recheck today's complaints, Continuance of care, Re-evaluation by your physician. Follow up: Roge Vivar DPM; When: 1 - 2 days; Reason: Worsening of condition, Recheck today's complaints. - Problem is new. - Symptoms have improved. Signatures: Dispatcher [employer] EDMS Jose Luis Prakash RN RN Janusz Jeuss RN RN [facility] García Lawrence MD MD mh7 Corrections: (The following items were deleted from the chart) 03:47 03:18 08/22/2020 03:18 Discharged to Home. Impression: Contusion-Right Foot. Condition wh is Stable. Forms are Medication Reconciliation Form, Thank You Letter, Antibiotic Education, Prescription Opioid Use. Follow up: Private Physician; When: 1 - 2 days; Reason: Worsening of condition, Recheck today's complaints, Continuance of care, Re-evaluation by your physician. Follow up: Roge Vivar; When: 1 - 2 days; Reason: Worsening of condition, Recheck today's complaints. Problem is new. Symptoms have improved. mh7
[2020-08-22 06:57] VITALS: TEMP 97.9; O2SAT 100
[2020-08-22 06:59] VITALS: BP 141/97
--- NOTE | 2020-08-22 08:19 | RAD REPORT ---
EXAM DESCRIPTION: RAD - Foot Right 3 View - 08/22/2020 3:09 am CLINICAL HISTORY: Injury, right foot pain, blunt force trauma 2 days earlier COMPARISON: No comparisonsNone. FINDINGS: No fracture, dislocation or periosteal reaction. No air or foreign body in the soft tissues. IMPRESSION: Negative right foot examination.
== END 2020-08-22 03:47 | disposition home or self-care (01) ==
LOC: ER 02:10
DX: S90.31XA Contusion of right foot, initial encounter (principal); W22.8XXA Striking against or struck by other objects, initial encounter; Y92.009 Unspecified place in unspecified non-institutional (private) residence as the place of occurrence of the external cause; I10 Essential (primary) hypertension
CPT/HCPCS: 99284

== ENCOUNTER 2021-02-23 08:51 | Emergency (ER) | payer SELFPAY ==
[2021-02-23 10:56] LABS: SARS-COV-2 RT PCR NEGATIVE (NEGATIVE)
--- NOTE | 2021-02-23 11:31 | ER ---
Nurse's Notes [facility] Name: Gissell Dela Cruz Age: 31 yrs Sex: Female : 1990 Arrival Date: 02/23/2021 Time: 08:54 Bed Waiting Private MD: Diagnosis: Headache Presentation: 02/23 09:11 Chief complaint: Patient states: BUCK x 2 days. Coronavirus screen: headache, Client jl7 presents with at least one sign or symptom that may indicate coronavirus-19. Standard/surgical mask placed on the client. Provider contacted for isolation considerations. Ebola Screen: No symptoms or risks identified at this time. Initial Sepsis Screen: Does the patient meet any 2 criteria? No. Patient's initial sepsis screen is negative. Does the patient have a suspected source of infection? No. Patient's initial sepsis screen is negative. Risk Assessment: Do you want to hurt yourself or someone else? Patient reports no desire to harm self or others. Onset of symptoms was February 21, 2021. 09:11 Method Of Arrival: Ambulatory [facility] 09:11 Acuity: CAMILO 4 jl7 Triage Assessment: 09:12 Headache History: The patient has had previous headaches and this one is similar to jl7 previous episodes. General: Appears in no apparent distress. uncomfortable, Behavior is calm, cooperative, appropriate for age. Pain: Complains of pain in BUCK Pain currently is 7 out of 10 on a pain scale. Pain began gradually, Also complains of no other associated symptoms. Neuro: Level of Consciousness is awake, alert, obeys commands, Oriented to person, place, time, situation. Cardiovascular: Patient's skin is warm and dry. Respiratory: Airway is patent Respiratory effort is even, unlabored, Respiratory pattern is regular, symmetrical. Derm: Skin is pink, warm \T\ dry. 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 - Social history:: Smoking status: Reported history of juuling and/or vaping. Screenin:15 Abuse screen: Denies threats or abuse. Denies injuries from another. Nutritional jl7 screening: No deficits noted. Tuberculosis screening: No symptoms or risk factors identified. Fall Risk None identified. Assessment: 09:15 Reassessment: RAZA Stubbs in triage assessing pt. jl7 Vital Signs: 09:11 BP 128 / 93; Pulse 93; Resp 17; Temp 98.9; Pulse Ox 100% ; jl7 11:46 BP 131 / 77; Pulse 79; Resp 15; Pulse Ox 100% ; jl7 [place] Coma Score: 11:31 Eye Response: spontaneous(4). Verbal Response: oriented(5). Motor Response: obeys kb commands(6). Total: 15. ED Course: 08:54 Patient arrived in ED. mr 09:12 Triage completed. jl7 09:12 Arm band placed on right wrist. Patient placed in waiting room, Patient notified of jl7 wait time. 09:14 [facility] Hazel [facility]C [facility] kb 09:14 Emilio Persaud MD is Attending Physician. kb 09:15 Patient has correct armband on for positive identification. jl7 09:15 COVID swab sent to lab. Flu and/or RSV swab sent to lab. jl7 09:15 No provider procedures requiring assistance completed. Patient did not have IV access jl7 during this emergency room visit. Administered Medications: No medications were administered Outcome: 11:30 Discharge ordered by . kb 11:44 Discharged to home ambulatory. jl7 11:44 Condition: stable 11:44 Discharge instructions given to patient, Instructed on discharge instructions, follow up and referral plans. Demonstrated understanding of instructions, follow-up care. 11:47 Patient left the ED. jl7 Signatures: Evelyne Hazel FNP-C FNP-Leonel Beverly Romero mr CruzalLaura, RN RN jl7
--- NOTE | 2021-02-23 11:31 | EDPHYS ---
Physician Documentation [facility] Name: Gissell Dela Cruz Age: 31 yrs Sex: Female : 1990 Arrival Date: 02/23/2021 Time: 08:54 Bed Waiting Private MD: Emilio Larsen HPI: 02/23 11:32 This 31 yrs old Female presents to ER via Ambulatory with complaints of kb Headache. 11:32 The patient complains of pain to the forehead. The patient describes the headache as kb throbbing. Associated signs and symptoms: Pertinent positives:. The patient has not recently seen a physician. 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 - Social history:: Smoking status: Reported history of juuling and/or vaping. ROS: 11:31 Constitutional: Negative for fever, chills, and weight loss. kb 11:31 Neuro: Positive for headache. 11:31 All other systems are negative. Exam: 11:31 Constitutional: This is a well developed, well nourished patient who is awake, alert, kb and in no acute distress. Head/Face: Normocephalic, atraumatic. ENT: Moist Mucous membranes Cardiovascular: Regular rate and rhythm with a normal S1 and S2. No gallops, murmurs, or rubs. No pulse deficits. Respiratory: Respirations even and unlabored. No increased work of breathing, no retractions or nasal flaring. Skin: Warm, dry with normal turgor. Normal color. MS/ Extremity: Pulses equal, no cyanosis. Neurovascular intact. Full, normal range of motion. Neuro: Awake and alert, GCS 15, oriented to person, place, time, and situation. Moves all extremities. Normal gait. Psych: Awake, alert, with orientation to person, place and time. Behavior, mood, and affect are within normal limits. Vital Signs: 09:11 BP 128 / 93; Pulse 93; Resp 17; Temp 98.9; Pulse Ox 100% ; jl7 11:46 BP 131 / 77; Pulse 79; Resp 15; Pulse Ox 100% ; jl7 Jeannette Coma Score: 11:31 Eye Response: spontaneous(4). Verbal Response: oriented(5). Motor Response: obeys kb commands(6). Total: 15. MDM: 09:14 Patient medically screened. kb 11:31 Data reviewed: vital signs, nurses notes. Data interpreted: Pulse oximetry: on room air kb is 100 %. Interpretation: normal. Counseling: I had a detailed discussion with the patient and/or guardian regarding: the historical points, exam findings, and any diagnostic results supporting the discharge/admit diagnosis, lab results, the need for outpatient follow up, a family practitioner, to return to the emergency department if symptoms worsen or persist or if there are any questions or concerns that arise at home. 02/23 09:15 Order name: Flu kb 02/23 10:56 Order name: COVID-19/FLU A+B; Complete Time: 10:59 EDMS Administered Medications: No medications were administered Disposition: 02/24 08:25 Co-signature as Attending Physician, Emilio Persaud MD I agree with the assessment and brad plan of care. Disposition Summary: 02/23/21 11:30 Discharge Ordered Location: Home kb Condition: Stable kb Diagnosis - Headache kb Followup: kb - With: Emergency Department - When: As needed - Reason: Worsening of condition Followup: kb - With: Private Physician - When: 2 - 3 days - Reason: Recheck today's complaints, Continuance of care, Re-evaluation by your physician Discharge Instructions: - Discharge Summary Sheet kb - General Headache Without Cause, [id number] kb Forms: - Medication Reconciliation Form kb - Thank You Letter kb - Antibiotic Education kb - Prescription Opioid Use kb Signatures: Dispatcher [employer] EDEvelyne Quigley, HOME APPLIANCE TECH-C HOME APPLIANCE TECH-Emilio Caldwell MD MD cha Leal, Jahala, RN RN jl7 Corrections: (The following items were deleted from the chart) 02/23 10:03 09:15 CORONAVIRUS+MR.LAB.BRZ ordered. EDMS EDMS 10:04 09:15 Influenza Screen (A ordered. EDMS EDMS
[2021-02-23 11:55] VITALS: TEMP 98.9; O2SAT 100
[2021-02-23 11:57] VITALS: BP 131/77
== END 2021-02-23 11:47 | disposition home or self-care (01) ==
LOC: ER 08:51
DX: R51.9 Headache, unspecified (principal); I10 Essential (primary) hypertension; Z20.822 Contact with and (suspected) exposure to COVID-19
CPT/HCPCS: 0240U; 99283

== ENCOUNTER 2021-02-24 19:55 | Emergency (ER) | payer SELFPAY | END 2021-02-24 22:27 | disposition left against medical advice (07) | LOC: ER 19:55 | DX: Z02.9 Encounter for administrative examinations, unspecified (principal) ==

== ENCOUNTER 2021-02-26 08:28 | Emergency (ER) | payer SELFPAY ==
[2021-02-26] MEDS ORDERED: ACETAMINOPHEN 500 MG TAB ONE (10:51)
--- NOTE | 2021-02-26 15:39 | EDPHYS ---
Physician Documentation [facility] Name: Gissell Dela Cruz Age: 31 yrs Sex: Female : 1990 Arrival Date: 02/26/2021 Time: 08:35 Bed 9 Private MD: ED Physician Leland Salcedo HPI: 02/26 12:54 SEE DOWN TIME PAPER CHART. sp3 MDM: 12:54 Patient medically screened. sp3 Administered Medications: No medications were administered Disposition Summary: 02/26/21 12:55 Discharge Ordered Location: Home sp3 Condition: Stable sp3 Diagnosis - SARS-associated coronavirus as the cause of diseases classified elsewhere sp3 Forms: - Medication Reconciliation Form sp3 - Thank You Letter sp3 - Antibiotic Education sp3 - Prescription Opioid Use sp3 Signatures: Leland Salcedo MD MD sp3
== END 2021-02-26 12:56 | disposition home or self-care (01) ==
LOC: ER 08:28
DX: U07.1 COVID-19 (principal); I10 Essential (primary) hypertension; F17.290 Nicotine dependence, other tobacco product, uncomplicated
CPT/HCPCS: 87070; 87081; 87804; U0003

== ENCOUNTER 2021-03-03 05:05 | Emergency (ER) | payer SELFPAY ==
[2021-03-03] MEDS ORDERED: NA CHLORIDE 0.9% 500 ML ONE (06:07)
[2021-03-03 06:15] LABS: Absolute Lymphocytes (CBC) 0.9 K/uL (0.7-4.9); Basophils % 0.4 % (0-1.3); Hematocrit 22.6 % (36.0-45.0); Lymphocytes % 22.1 % (15.3-44.8); RBC Red Blood Cell Count 4.44 M/uL (3.86-4.86)
[2021-03-03 06:17] LABS: Protime INR 1.19
[2021-03-03] MEDS ORDERED: ASPIRIN EC 81 MG TAB PO ONE (06:31)
[2021-03-03] MEDS ORDERED: METHYLPREDNISOLONE 125 MG INJ ONE (06:31)
[2021-03-03] MEDS ORDERED: AZITHROMYCIN 250 MG TAB ONE (06:32)
[2021-03-03] MEDS ORDERED: predniSONE 20 MG TAB ONE (06:32)
[2021-03-03] MEDS ORDERED: NA CHLORIDE 0.9% 1,000 ML ONE ×2 (06:34→12:20)
[2021-03-03] MEDS ORDERED: FAMOTIDINE 20 MG/2 ML VIAL IV ONE (06:34)
[2021-03-03 06:48] LABS: Urine Blood Negative (Negative); Urine Glucose Negative (Negative); Urine Protein Negative (Negative); Urine pH 6.5 (5.0-7.0)
[2021-03-03 07:04] LABS: ALT/SGPT 53 U/L (12-78); AST/SGOT 82 U/L (15-37); Albumin 3.4 g/dL (3.4-5.0); Alkaline Phosphatase 74 U/L (45-117); BUN Blood Urea Nitrogen 6 mg/dL (7-18); Bicarbonate 24 mmol/L (21-32); Bilirubin Direct 0.1 mg/dL (0-0.2); Bilirubin Total 0.3 mg/dL (0.2-1.0); Glucose Level 100 mg/dL (74-106); Magnesium 1.7 mg/dL (1.8-2.4); NT PRO-BNP 68 pg/mL (<125); Protein, Total 7.2 g/dL (6.4-8.2); Sodium Level 139 mmol/L (136-145); Troponin (Emerg Dept Use Only) < 0.02 ng/mL (0.0-0.045)
--- NOTE | 2021-03-03 07:09 | RAD REPORT ---
EXAM DESCRIPTION: RAD - Chest Single View - 03/03/2021 6:22 am CLINICAL HISTORY: CHEST PAIN COMPARISON: Chest For Pe Angio dated 03/03/2021 FINDINGS: Lines: None. Lungs: Patchy multifocal airspace disease bilaterally which is mild to moderate. Pleural: No significant pleural effusions or pneumothorax. Cardiac: The heart size is within normal limits. Bones: No acute fractures. Other: IMPRESSION: Mild to moderate patchy bilateral airspace disease concerning for multifocal pneumonia, including Covid-19 .
[2021-03-03] MEDS ORDERED: ONDANSETRON 4 MG/2 ML VIAL ONE (07:52)
[2021-03-03] MEDS ORDERED: POTASSIUM 25 MEQ EFFERV TAB ONE (08:14)
[2021-03-03] MEDS ORDERED: MAGNESIUM SULFATE 1 gm IVPB 1 GM/100 ML BAG IV ONE (08:16)
[2021-03-03] MEDS ORDERED: ALBUTEROL INHALER 60 PUFF/8 GM IH ONE ×2 (08:17→08:20)
[2021-03-03 10:26] LABS: Platelet Estimate DECR
[2021-03-03 10:27] LABS: Anisocytosis 1+; Blood Morphology Comment NOTED (NOT SEEN); Hypochromasia 3+; Platelets, Giant PRESENT; Poikilocytosis 1+
--- NOTE | 2021-03-03 14:15 | RAD REPORT ---
EXAM DESCRIPTION: CT - Chest For Pe Angio - 03/03/2021 6:58 am CLINICAL HISTORY: The patient is 31 years old and is Female; CHEST PAIN TECHNIQUE: Axial computed tomographic angiography images of the chest with intravenous contrast. S agittal and coronal reformatted images were created and reviewed. This CT exam was performed using one or more of the following dose reduction techniques: automated exposure control, adjustment of t he mA and/or kV according to patient size, and/or use of iterative reconstruction technique. MIP re constructed images were created and reviewed. COMPARISON: No relevant prior studies available. FINDINGS: Pulmonary arteries: The main pulmonary artery measures 3.4 cm in diameter which can be s een with pulmonary hypertension. No pulmonary embolism. Aorta: No acute findings. No thoracic aortic aneurysm. Lungs: Multifocal consolidation with scattered groundglass changes in the lungs bilaterally. Pleural space: Unremarkable. No significant effusion. No pneumothorax. Heart: Unremarkable. No cardiomegaly. No significant pericardial effusion. No evidence of R V dysfunction. Bones/joints: No acute fracture. No dislocation. Soft tissues: Unremarkable. Lymph nodes: Unremarkable. No enlarged lymph nodes. IMPRESSION: 1. No evidence of pulmonary embolism. 2. Multifocal consolidation with scattered groundglass changes in the lungs bilaterally. Findings are suggestive of multifocal pneumonia. 3. The main pulmonary artery measures 3.4 cm in diameter which can be seen with pulmonary hypertens ion. Electronically signed by: Roge Friedman MD 03/03/2021 6:36 AM CDT Due to temporary technical issues with the PACS/Fluency reporting system, reports are being signed by the in house radiologists without review as a courtesy to insure prompt reporting. The interpreting radiologist is fully responsible for the content of the report.
[2021-03-03 15:33] LABS: Ferritin 38.3 ng/mL (8-388); Folic Acid, (Folate) 18.1 ng/mL (3.1-17.5)
[2021-03-03] MEDS ORDERED: NA CHLORIDE 0.9% 250 ML ONE (16:45)
--- NOTE | 2021-03-03 19:49 | ER ---
Nurse's Notes [facility] Name: Gissell Dela Cruz Age: 31 yrs Sex: Female : 1990 Arrival Date: 03/03/2021 Time: 05:08 Bed 15 Private MD: Diagnosis: Iron deficiency anemia secondary to blood loss (chronic);Iron deficiency anemia, unspecified;Coronavirus infection, unspecified;Pneumonia due to SARS-associated coronavirus;Weakness;Chest pain on breathing;Hypokalemia;Hypomagnesemia Presentation: 03/03 05:22 Chief complaint: Patient states: covid positive on 02/23/21, developed chest pressure, em difficulty breathing, fever, took ibuprofen and Tylenol 1 hr EVP STRATEGY. Coronavirus screen: Vaccine status: Patient reports being unvaccinated. Ebola Screen: Patient negative for fever greater than or equal to 101.5 degrees Fahrenheit, and additional compatible Ebola Virus Disease symptoms Patient denies exposure to infectious person. Patient denies travel to an Ebola-affected area in the 21 days before illness onset. No symptoms or risks identified at this time. Initial Sepsis Screen: Does the patient meet any 2 criteria? HR > 90 bpm. Does the patient have a suspected source of infection? Yes: Productive cough/pneumonia. Risk Assessment: Do you want to hurt yourself or someone else? Patient reports no desire to harm self or others. Onset of symptoms was March 03, 2021. 05:22 Method Of Arrival: Ambulatory em 05:22 Acuity: CAMILO 2 em Triage Assessment: 18:18 General: Appears in no apparent distress. comfortable, well groomed, well nourished, aj2 Behavior is calm, cooperative, appropriate for age. Pain: Denies pain. 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 - Social history:: Smoking status: Reported history of juuling and/or vaping. - Family history:: not pertinent. Screenin:57 Abuse screen: Denies threats or abuse. Denies injuries from another. Nutritional aj2 screening: No deficits noted. Tuberculosis screening: No symptoms or risk factors identified. Fall Risk None identified. Assessment: 09:57 Reassessment: Patient appears in no apparent distress at this time. Patient is alert, aj2 oriented x 3, equal unlabored respirations, skin warm/dry/pink. Patient denies pain at this time. Patient states feeling better. Pain: Denies pain. Pain: Denies pain. Cardiovascular: No deficits noted. 12:22 Reassessment: Patient appears in no apparent distress at this time. Patient and/or aj2 family updated on plan of care and expected duration. Pain level reassessed. Patient is alert, oriented x 3, equal unlabored respirations, skin warm/dry/pink. Patient denies pain at this time. Patient states symptoms have improved. Pain: Denies pain. 14:40 Reassessment: Patient appears in no apparent distress at this time. Patient is alert, aj2 oriented x 3, equal unlabored respirations, skin warm/dry/pink. Patient denies pain at this time. 17:14 Reassessment: Patient appears in no apparent distress at this time. Patient is alert, aj2 oriented x 3, equal unlabored respirations, skin warm/dry/pink. Patient denies pain at this time. Report given to Soha (charge nurse). One unit of red blood cells infusing per protocol with no adverse reactions.. Nursing staff will continue to monitor.. 21:00 Pain: Pain began. lh3 Vital Signs: 05:22 BP 140 / 97; Pulse 122; Resp 26; Temp 98.6; Pulse Ox 100% on R/A; Weight 77.11 kg; em Height 5 ft. 3 in. (160.02 cm); 09:08 BP 130 / 87; Pulse 87; Resp 22; Temp 97.7; Pulse Ox 97% ; aj2 10:48 BP 123 / 80; Pulse 82; Resp 22; Temp 97.2; Pulse Ox 98% ; aj2 12:21 BP 119 / 75; Pulse 72; Resp 20; Pulse Ox 100% on 2 lpm NC; aj2 12:22 Temp 98.4; aj2 14:38 BP 121 / 79; Pulse 79; Resp 20; Temp 98.1; Pulse Ox 100% on 2 lpm NC; aj2 17:14 BP 119 / 75; Pulse 64; Resp 18; Temp 98; Pulse Ox 100% ; aj2 18:18 BP 138 / 99; Pulse 18; Resp 18; Temp 98.2; Pulse Ox 100% on 2 lpm NC; aj2 05:22 Body Mass Index 30.11 (77.11 kg, 160.02 cm) em Vitals: 12:22 Cardiac Rhythm Assessment Sinus rhythm. aj2 14:40 Cardiac Rhythm Assessment Sinus rhythm. aj2 17:14 Cardiac Rhythm Assessment Sinus rhythm. aj2 ED Course: 05:08 Patient arrived in ED. bp1 05:25 Triage completed. em 05:25 Arm band placed on. em 05:41 Shima Talamantes is Primary Nurse. kc4 05:44 Emilio Persaud MD is Attending Physician. brad 06:17 Chest For PE Angio CT In Process Unspecified. EDMS 06:22 XRAY Chest (1 view) In Process Unspecified. EDMS 07:35 Emilio Arnett PA is PHCP. cp 07:57 Avery Arnold MD is Attending Physician. cp 09:57 No apparent distress. Appears to be sleeping. aj2 09:57 Patient has correct armband on for positive identification. monitoring and evaluation advisor on. aj2 09:57 No provider procedures requiring assistance completed. IV is patent, is intact, Flushed aj2 left Converted IV to saline lock on. Patient maintains SpO2 saturation greater than 95% on room air. 11:00 Attending Physician role handed off by Avery Arnold MD cp 11:00 Emilio Persaud MD is Attending Physician. cp 12:22 No apparent distress. Resting quietly. aj2 12:22 IV is patent, is intact, Flushed. aj2 14:40 No apparent distress. Resting quietly. aj2 14:40 IV is patent, is intact, Blood infusing. aj2 17:14 No apparent distress. Resting quietly. aj2 18:24 PHCP role handed off by Emilio Arnett PA [facility] 18:24 Galindo Rodrigues PA is PHCP. [facility] 19:48 Rey Bronson MD is Referral Physician. [facility] 19:48 Fransisco Ponce MD is Referral Physician. [facility] Administered Medications: 06:20 Drug: predniSONE 40 mg Route: PO; kc4 06:39 Follow up: Response: No adverse reaction kc4 06:20 Drug: SOLU-Medrol (methylPrednisoLONE) 125 mg Route: IVP; Site: right antecubital; kc4 06:38 Follow up: Response: No adverse reaction kc4 06:21 Drug: Pepcid (famotidine) 40 mg Route: IVP; Site: right antecubital; kc4 06:21 Drug: Zithromax (azithromycin) 500 mg Route: PO; kc4 06:40 Follow up: Response: No adverse reaction kc4 06:21 Drug: Aspirin Chewable Tablet 324 mg Route: PO; kc4 06:39 Follow up: Response: No adverse reaction kc4 06:40 Follow up: Response: No adverse reaction kc4 06:42 Drug: NS 0.9% 500 ml Route: IV; Rate: bolus; Site: right antecubital; kc4 07:44 Drug: Zofran (Ondansetron) 4 mg Route: IVP; Site: right antecubital; aj2 07:45 Not Given (Duplicate Order): Potassium Effervescent Tablet 25 mEq PO once; dissolve in aj2 4 ounces of water or juice 08:13 Drug: Albuterol HFA Inhaler 4 puffs Route: Inhalation; aj2 08:13 Drug: Magnesium Sulfate 1 grams Route: IVPB; Infused Over: 1 hrs; Site: right aj2 antecubital; 08:13 Drug: Potassium Effervescent Tablet 25 mEq Route: PO; aj2 Medication: 17:14 Blood products: PRBCs X 2 units given. aj2 Outcome: 19:48 Discharge ordered by MD. hernandez 20:26 Discharged to home ambulatory. 3 20:26 Condition: good 20:26 Discharge instructions given to patient, Instructed on discharge instructions, follow up and referral plans. iron deficiency and potassium deficiency Demonstrated understanding of instructions. 20:46 Patient left the ED. 3 Signatures: Dispatcher [employer] Emilio Barker MD MD cha Mickail, Joel, PA PA jmm Munoz, Edgar, RN RN em Page, Corey, PA PA cp Paniauga, Brittany bp1 Hardee, Latisha, RN RN 3 Seferino Pleitez aj2 Shima Talamantes kc4 Corrections: (The following items were deleted from the chart) 06:42 06:21 NS 0.9% 1000 ml IV at 125 ml/hr in right antecubital kc4 kc4
--- NOTE | 2021-03-03 19:49 | EDPHYS ---
Physician Documentation [facility] Name: Gissell Dela Cruz Age: 31 yrs Sex: Female : 1990 Arrival Date: 03/03/2021 Time: 05:08 Bed 15 Private MD: ED Physician Emilio Persaud HPI: 03/03 06:59 This 31 yrs old Female presents to ER via Ambulatory with complaints of Chest brad Tightness, Fever. 06:59 The patient or guardian reports chest pain that is located primarily in the substernal brad area, anterior chest wall, bilaterally. The pain does not radiate. Associated signs and symptoms: The patient has no apparent associated signs or symptoms. The chest pain is described as a heaviness. Duration: The patient or guardian reports a single episode, that is still ongoing, but improving. Modifying factors: The symptoms are alleviated by nothing. the symptoms are aggravated by breathing, cough. Severity of pain: At its worst the pain was mild in the emergency department the pain has improved. The patient has not experienced similar symptoms in the past. 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 - Social history:: Smoking status: Reported history of juuling and/or vaping. - Family history:: not pertinent. ROS: 06:59 Constitutional: Negative for fever, chills, and weight loss, Eyes: Negative for injury, brad pain, redness, and discharge, ENT: Negative for injury, pain, and discharge, Neck: Negative for injury, pain, and swelling, Abdomen/GI: Negative for abdominal pain, nausea, vomiting, diarrhea, and constipation, Back: Negative for injury and pain, : Negative for injury, bleeding, discharge, and swelling, MS/Extremity: Negative for injury and deformity, Skin: Negative for injury, rash, and discoloration, Neuro: Negative for headache, weakness, numbness, tingling, and seizure, Psych: Negative for depression, anxiety, suicide ideation, homicidal ideation, and hallucinations, Allergy/Immunology: Negative for hives, rash, and allergies, Endocrine: Negative for neck swelling, polydipsia, polyuria, polyphagia, and marked weight changes, Hematologic/Lymphatic: Negative for swollen nodes, abnormal bleeding, and unusual bruising. 06:59 Cardiovascular: Positive for chest pain, palpitations. 06:59 Respiratory: Positive for cough, "sounds productive", shortness of breath, at rest. 06:59 MS/extremity: Negative for acute changes. Exam: 06:59 Constitutional: This is a well developed, well nourished patient who is awake, alert, brad and in no acute distress. Head/Face: Normocephalic, atraumatic. Eyes: Pupils equal round and reactive to light, extra-ocular motions intact. Lids and lashes normal. Conjunctiva and sclera are non-icteric and not injected. Cornea within normal limits. Periorbital areas with no swelling, redness, or edema. ENT: Nares patent. No nasal discharge, no septal abnormalities noted. Tympanic membranes are normal and external auditory canals are clear. Oropharynx with no redness, swelling, or masses, exudates, or evidence of obstruction, uvula midline. Mucous membranes moist. Neck: Trachea midline, no thyromegaly or masses palpated, and no cervical lymphadenopathy. Supple, full range of motion without nuchal rigidity, or vertebral point tenderness. No Meningismus. Chest/axilla: Normal chest wall appearance and motion. Nontender with no deformity. No lesions are appreciated. Abdomen/GI: Soft, non-tender, with normal bowel sounds. No distension or tympany. No guarding or rebound. No evidence of tenderness throughout. Back: No spinal tenderness. No costovertebral tenderness. Full range of motion. MS/ Extremity: Pulses equal, no cyanosis. Neurovascular intact. Full, normal range of motion. Neuro: Awake and alert, GCS 15, oriented to person, place, time, and situation. Cranial nerves II-XII grossly intact. Motor strength 5/5 in all extremities. Sensory grossly intact. Cerebellar exam normal. Normal gait. Psych: Awake, alert, with orientation to person, place and time. Behavior, mood, and affect are within normal limits. 06:59 Cardiovascular: Rate: tachycardic, Rhythm: regular, Pulses: Pulses are 4+ in bilateral radial, brachial, femoral, popliteal, posterior tibial and and dorsalis pedis arteries.. Heart sounds: normal, murmur, not appreciated, rub, not appreciated, gallop, not appreciated. 06:59 ECG was reviewed by the Attending Physician. 06:59 Respiratory: Respirations: labored breathing, is not present, Breath sounds: bronchial sounds, that are mild, are scattered, decreased breath sounds, that are mild, are located in both bases, rhonchi, that are mild, are located in both bases, stridor, is not appreciated, wheezing: expiratory is scattered, Respiratory rate: 26 Vital Signs: 05:22 BP 140 / 97; Pulse 122; Resp 26; Temp 98.6; Pulse Ox 100% on R/A; Weight 77.11 kg; em Height 5 ft. 3 in. (160.02 cm); 09:08 BP 130 / 87; Pulse 87; Resp 22; Temp 97.7; Pulse Ox 97% ; aj2 10:48 BP 123 / 80; Pulse 82; Resp 22; Temp 97.2; Pulse Ox 98% ; aj2 12:21 BP 119 / 75; Pulse 72; Resp 20; Pulse Ox 100% on 2 lpm NC; aj2 12:22 Temp 98.4; aj2 14:38 BP 121 / 79; Pulse 79; Resp 20; Temp 98.1; Pulse Ox 100% on 2 lpm NC; aj2 17:14 BP 119 / 75; Pulse 64; Resp 18; Temp 98; Pulse Ox 100% ; aj2 18:18 BP 138 / 99; Pulse 18; Resp 18; Temp 98.2; Pulse Ox 100% on 2 lpm NC; aj2 05:22 Body Mass Index 30.11 (77.11 kg, 160.02 cm) em MDM: 05:44 Patient medically screened. [facility] 18:00 Data reviewed: vital signs, nurses notes. 18:00 Transition of care: After a detail discussion of the patient's case, care is cp transferred to [facility]. ED course: Patient continues to receive second unit of blood. 03/03 05:32 Order name: Basic Metabolic Panel; Complete Time: 07:33 em 03/03 11:30 Interpretation: Normal except: K 3.0; CL 109; BUN 6; CA 8.3. 03/03 05:32 Order name: CBC with Diff; Complete Time: 18:24 em 03/03 11:30 Interpretation: Normal except: WBC 3.90; HGB 6.3; HCT 22.6; MCV 50.9; MCH 14.1; MCHC cp 27.7; PLT 132; RDW 21.2; LISS% 73.8; MN% 2.9. 03/03 05:32 Order name: LFT's; Complete Time: 07:33 03/03 05:32 Order name: Magnesium; Complete Time: 07:33 03/03 05:32 Order name: NT PRO-BNP; Complete Time: 07:33 03/03 05:32 Order name: PT-INR; Complete Time: 06:37 03/03 05:32 Order name: Troponin (emerg Dept Use Only); Complete Time: 07:33 03/03 06:27 Order name: CREATININE WHOLE BLOOD; Complete Time: 06:37 [facility] 03/03 06:36 Order name: Type And Screen [facility] 03/03 06:39 Order name: Ferritin; Complete Time: 18:24 [facility] 03/03 06:39 Order name: TIBC; Complete Time: 18:24 [facility] 03/03 06:39 Order name: Folic Acid,Serum (folate); Complete Time: 18:24 [facility] 03/03 06:39 Order name: B12; Complete Time: 18:24 [facility] 03/03 05:32 Order name: XRAY Chest (1 view); Complete Time: 07:33 03/03 05:32 Order name: Chest For PE Angio CT 03/03 06:48 Order name: Urine Dipstick-Ancillary; Complete Time: 07:33 [facility] 03/03 06:54 Order name: Urine --Ancillary (enter results); Complete Time: 07:33 03/03 07:52 Order name: Packed RBC Leukored [facility] 03/03 10:26 Order name: Manual Differential; Complete Time: 18:24 [facility] 03/03 12:40 Order name: ABO/RH no charge; Complete Time: 18:24 [facility] 03/03 05:32 Order name: EKG; Complete Time: 05:33 em 03/03 05:32 Order name: Cardiac monitoring; Complete Time: 05:55 em 03/03 05:32 Order name: EKG - Nurse/Tech; Complete Time: 05:55 03/03 05:32 Order name: IV Saline Lock; Complete Time: 13:39 em 03/03 05:32 Order name: Labs collected and sent; Complete Time: 13:39 em 03/03 05:32 Order name: O2 Per Protocol; Complete Time: 13:39 em 03/03 05:32 Order name: O2 Sat Monitoring; Complete Time: 05:55 em 03/03 06:56 Order name: Transfuse; Complete Time: 16:59 brad 03/03 08:43 Order name: Vital Signs: please update; Complete Time: 09:11 cp EC:59 Rate is 104 beats/min. Rhythm is regular. QRS [place] is Normal. NV interval is normal. brad QRS interval is normal. QT interval is normal. No Q waves. T waves are Normal. No ST changes noted. Clinical impression: NSR w/ Non-specific ST/T Changes and No evidence of ischemia. Interpreted by me. Reviewed by me. Administered Medications: 06:20 Drug: predniSONE 40 mg Route: PO; kc4 06:39 Follow up: Response: No adverse reaction kc4 06:20 Drug: SOLU-Medrol (methylPrednisoLONE) 125 mg Route: IVP; Site: right antecubital; kc4 06:38 Follow up: Response: No adverse reaction kc4 06:21 Drug: Pepcid (famotidine) 40 mg Route: IVP; Site: right antecubital; kc4 06:21 Drug: Zithromax (azithromycin) 500 mg Route: PO; kc4 06:40 Follow up: Response: No adverse reaction kc4 06:21 Drug: Aspirin Chewable Tablet 324 mg Route: PO; kc4 06:39 Follow up: Response: No adverse reaction kc4 06:40 Follow up: Response: No adverse reaction kc4 06:42 Drug: NS 0.9% 500 ml Route: IV; Rate: bolus; Site: right antecubital; kc4 07:44 Drug: Zofran (Ondansetron) 4 mg Route: IVP; Site: right antecubital; aj2 07:45 Not Given (Duplicate Order): Potassium Effervescent Tablet 25 mEq PO once; dissolve in aj2 4 ounces of water or juice 08:13 Drug: Albuterol HFA Inhaler 4 puffs Route: Inhalation; aj2 08:13 Drug: Magnesium Sulfate 1 grams Route: IVPB; Infused Over: 1 hrs; Site: right aj2 antecubital; 08:13 Drug: Potassium Effervescent Tablet 25 mEq Route: PO; aj2 Disposition: 03/04 20:14 Co-signature as Attending Physician, Emilio Persaud MD I agree with the assessment and brad plan of care. Disposition Summary: 03/03/21 19:48 Discharge Ordered Location: Home jmm Problem: new jmm Symptoms: have improved jmm Condition: Stable jmm Diagnosis - Iron deficiency anemia secondary to blood loss (chronic) jmm - Iron deficiency anemia, unspecified jmm - Coronavirus infection, unspecified jmm - Pneumonia due to SARS-associated coronavirus jmm - Weakness jmm - Chest pain on breathing jmm - Hypokalemia jmm - Hypomagnesemia jmm Followup: brad - With: Private Physician - When: 2 - 3 days - Reason: Recheck today's complaints, Continuance of care, Re-evaluation by your physician Followup: brad - With: - When: 2 - 3 days - Reason: Recheck today's complaints, Re-evaluation by your physician Followup: brad - With: - When: 2 - 3 days - Reason: Recheck today's complaints, Re-evaluation by your physician Discharge Instructions: - Discharge Summary Sheet brad - Iron Deficiency Anemia, Adult brad - Anemia brad - Blood Transfusion, Adult brad - Nonspecific Chest Pain, Adult brad - Iron-Rich Diet brad - Weakness brad - Fatigue brad - Nonspecific Chest Pain, Adult, Ucyz-if-Uacf brad - Weakness, Rvyz-lp-Gkip brad - Viral Respiratory Infection, Ayyo-Mc-Yyrj brad - Aspirin and Your Heart brad - Potassium Content of Foods brad - Hypomagnesemia brad - COVID-19 brad - COVID-19 Frequently Asked Questions [facility] - 10 Things You Can Do to Manage Your COVID-19 Symptoms at Home - [facility] brad - COVID-19: Quarantine vs. Isolation - [facility] brad - Iron Deficiency Anemia, Adult, [place] brad - Hypokalemia brad Forms: - Medication Reconciliation Form [facility] - Thank You Letter [facility] - Antibiotic Education [facility] - Prescription Opioid Use [facility] Prescriptions: - Singulair 10 mg Oral tablet - take 1 tablet by ORAL route once daily; 30 tablet; Refills: 0, Product brad Selection Permitted - albuterol sulfate 90 mcg/actuation Inhalation HFA aerosol inhaler - inhale 2 puff by INHALATION route every 6 hours; 1 Pump; Refills: 0, Product [facility] Selection Permitted - Pepcid 20 mg Oral Tablet - take 1 tablet by ORAL route every 12 hours for 30 days; 60 tablet; Refills: 0, [facility] Product Selection Permitted - Zithromax 500 mg Oral Tablet - take 1 tablet by ORAL route once daily for 5 days; 5 tablet; Refills: 0, [facility] Product Selection Permitted Signatures: Dispatcher [employer] EDEmilio Kirby MD MD cha Mickail, Joel, PA PA jmm Munoz, Edgar, RN RN Emilio Nagel PA PA cp Lewis, Lynsay, RN RN ll1 Seferino Pleitez aj2 Shima Talamantes kc4 Corrections: (The following items were deleted from the chart) 03/03 06:40 06:40 FERRITIN+C.LAB.BRZ ordered. EDMS EDMS 16:59 06:40 RETIC COUNT+H.LAB.BRZ ordered. EDMS EDMS
[2021-03-03 20:55] VITALS: O2SAT 100
[2021-03-03 21:00] VITALS: BP 138/99; TEMP 98.2
== END 2021-03-03 20:46 | disposition home or self-care (01) ==
LOC: ER 05:05 → 2ND 11:07 → ER 20:46
PROC: 30233N1 Transfusion of Nonautologous Red Blood Cells into Peripheral Vein, Percutaneous Approach (ICD-10-PCS; principal; 2021-03-03)
DX: D50.0 Iron deficiency anemia secondary to blood loss (chronic) (principal); U07.1 COVID-19; J12.82 Pneumonia due to coronavirus disease 2019; E87.6 Hypokalemia; E83.42 Hypomagnesemia; R53.1 Weakness; I10 Essential (primary) hypertension
CPT/HCPCS: 36415; 36430; 71045; 71275; 80048; 80076; 81003; 81025; 82565; 82607; 82728; 82746; 83540; 83735; 83880; 84466; 84484; 85025; 85610; 86850; 86900; 86901; 93005; 96374; 96375; 99285; J2405; J2930; J3475; J7030; J7040; J7050; J7512; P9016; Q9967

== ENCOUNTER 2021-10-05 17:37 | Emergency (ER) | payer SELFPAY ==
--- NOTE | 2021-10-05 17:48 | ER ---
Nurse's Notes [facility] Name: Gissell Dela Cruz Age: 31 yrs Sex: Female : 1990 Arrival Date: 10/05/2021 Time: 17:39 Bed Waiting Private MD: Diagnosis: Dysmenorrhea, unspecified Presentation: 10/05 17:43 Chief complaint: Patient states: Bad period cramps for 1 day with BUCK and nausea since ll1 Saturday. Coronavirus screen: Client denies travel out of the [place] in the last 14 days. At this time, the client does not indicate any symptoms associated with coronavirus-19. Ebola Screen: Patient denies travel to an Ebola-affected area in the 21 days before illness onset. Initial Sepsis Screen: Does the patient meet any 2 criteria? No. Patient's initial sepsis screen is negative. Does the patient have a suspected source of infection? No. Patient's initial sepsis screen is negative. Risk Assessment: Do you want to hurt yourself or someone else? Patient reports no desire to harm self or others. Onset of symptoms was October 01, 2021. 17:43 Method Of Arrival: Ambulatory ll1 17:46 Acuity: CAMILO 5 ll1 Triage Assessment: 17:45 General: Appears in no apparent distress. Behavior is calm, cooperative, appropriate ll1 for age. Pain: Complains of pain in abdomen Quality of pain is described as crampy. GI: Reports lower abdominal pain, cramping. : Reports pain vaginal bleeding that is moderate flow. 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 - Social history:: Smoking status: Reported history of juuling and/or vaping. Patient denies any tobacco usage or history of. Screenin:53 Abuse screen: Denies threats or abuse. Nutritional screening: No deficits noted. ll1 Tuberculosis screening: No symptoms or risk factors identified. Fall Risk Total Melendez Fall Scale indicates No Risk (0-24 pts). Assessment: 17:53 GI: Bowel sounds present X 4 quads. Abd is soft and non tender X 4 quads. ll1 Vital Signs: 17:43 BP 142 / 108; Pulse 85; Resp 16; Temp 99.1; Pulse Ox 100% ; Pain 4/10; ll1 ED Course: 17:39 Patient arrived in ED. mr 17:44 Triage completed. ll1 17:45 Arm band placed on Patient placed in an exam room, on a stretcher. ll1 17:47 [facility] jr[facility] 17:47 Emilio Persaud MD is Attending Physician. jr8 17:53 Patient has correct armband on for positive identification. Bed in low position. Call ll1 light in reach. Cardiac monitoring not applicable on this patient. 17:53 No provider procedures requiring assistance completed. Patient did not have IV access ll1 during this emergency room visit. Administered Medications: No medications were administered Outcome: 17:48 Discharge ordered by . jr8 17:53 Patient left the ED. ll1 17:53 Discharged to home ambulatory. ll1 17:53 Condition: stable 17:53 Discharge instructions given to patient, Instructed on discharge instructions, follow up and referral plans. Demonstrated understanding of instructions, follow-up care. Signatures: Romero, Beverly mr Sam Badillo PA PA jr8 Irvin Gonsales RN RN ll1 Corrections: (The following items were deleted from the chart) 17:46 17:43 Acuity: CAMILO 4 ll1 ll1
--- NOTE | 2021-10-05 17:48 | EDPHYS ---
Physician Documentation [facility] Name: Gissell Dela Cruz Age: 31 yrs Sex: Female : 1990 Arrival Date: 10/05/2021 Time: 17:39 Bed Waiting Private MD: Emilio Larsen HPI: 10/05 17:52 This 31 yrs old Female presents to ER via Ambulatory with complaints of jr8 Abdominal Cramping. 17:53 The patient presents with vaginal bleeding that is moderate. Onset: The jr8 symptoms/episode began/occurred gradually. Modifying factors: The symptoms are alleviated by nothing, the symptoms are aggravated by nothing. Associated signs and symptoms: The patient has no apparent associated signs or symptoms. Severity of symptoms: At their worst the symptoms were mild, in the emergency department the symptoms are unchanged. The patient has experienced similar episodes in the past, several times. The patient has not recently seen a physician. Patient stated about every other cycle she has significant abdominal cramping secondary to her menstrual cycles and requires a couple days off. 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 Stated that otherwise she feels completely normal and that for her there is nothing new symptomology armijo.. 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 - Social history:: Smoking status: Reported history of juuling and/or vaping. Patient denies any tobacco usage or history of. ROS: 17:53 Eyes: Negative for injury, pain, redness, and discharge, ENT: Negative for injury, jr8 pain, and discharge, Neck: Negative for injury, pain, and swelling, Cardiovascular: Negative for chest pain, palpitations, and edema, Respiratory: Negative for shortness of breath, cough, wheezing, and pleuritic chest pain, Abdomen/GI: Negative for abdominal pain, nausea, vomiting, diarrhea, and constipation, Back: Negative for injury and pain, MS/Extremity: Negative for injury and deformity, Skin: Negative for injury, rash, and discoloration, Neuro: Negative for headache, weakness, numbness, tingling, and seizure. 17:53 : Positive for vaginal bleeding, menstrual abnormality. Exam: 17:53 Constitutional: This is a well developed, well nourished patient who is awake, alert, jr8 and in no acute distress. Cardiovascular: Regular rate and rhythm with a normal S1 and S2. No gallops, murmurs, or rubs. Normal PMI, no JVD. No pulse deficits. Respiratory: Lungs have equal breath sounds bilaterally, clear to auscultation and percussion. No rales, rhonchi or wheezes noted. No increased work of breathing, no retractions or nasal flaring. Abdomen/GI: Soft, non-tender, with normal bowel sounds. No distension or tympany. No guarding or rebound. No evidence of tenderness throughout. Skin: Warm, dry with normal turgor. Normal color with no rashes, no lesions, and no evidence of cellulitis. MS/ Extremity: Pulses equal, no cyanosis. Neurovascular intact. Full, normal range of motion. Neuro: Awake and alert, GCS 15, oriented to person, place, time, and situation. Cranial nerves II-XII grossly intact. Motor strength 5/5 in all extremities. Sensory grossly intact. Vital Signs: 17:43 BP 142 / 108; Pulse 85; Resp 16; Temp 99.1; Pulse Ox 100% ; Pain 4/10; ll1 MDM: 17:48 Patient medically screened. jr8 Administered Medications: No medications were administered Disposition: 19:01 Co-signature as Attending Physician, Emilio Persaud MD I agree with the assessment and [facility] plan of care. Disposition Summary: 10/05/21 17:48 Discharge Ordered Location: Home jr8 Problem: new jr8 Symptoms: have improved jr8 Condition: Stable jr8 Diagnosis - Dysmenorrhea, unspecified jr8 Followup: jr8 - With: Private Physician - When: As needed - Reason: Continuance of care, Re-evaluation by your physician Discharge Instructions: - Dysmenorrhea jr8 - Discharge Summary Sheet ll1 Forms: - Medication Reconciliation Form jr8 - Thank You Letter jr8 - Antibiotic Education jr8 - Prescription Opioid Use jr8 - Work release form ll1 Signatures: Emilio Persaud MD MD cha Roszak, Josh, PA PA jr8 Irvin Gonsales, RN RN ll1
[2021-10-05 22:02] VITALS: BP 142/108; TEMP 99.1; O2SAT 100
== END 2021-10-05 17:53 | disposition home or self-care (01) ==
LOC: ER 17:37
DX: N94.6 Dysmenorrhea, unspecified (principal); I10 Essential (primary) hypertension
CPT/HCPCS: 99281